=== PATIENT | female | born 1990 | race African-American/Black ===

== ENCOUNTER 2019-08-14 13:56 | Inpatient (IN) | payer MEDICAID ==
[2019-08-14] VITALS (7 sets, daily range): BP systolic 117–133; BP diastolic 62–77; Ht 167.6 cm; Wt 109.3 kg
[~2019-08-14] VITALS: Ht 167.6 cm; Wt 109.3 kg
[2019-08-14] MEDS ORDERED: PRENAVITE1 TAB PO (14:07)
[2019-08-14 14:35] LABS: BASOPHILS 0.1 % (0-2); EOSINOPHILS 0.4 % (0-7); HEMATOCRIT 34.3 % (36.0-48.0); HEMOGLOBIN 11.2 g/dL (12-16); IMMATURE GRANULOCYTES 0.6 % (0-5); LYMPHOCYTES 13.6 % (15-50); MCH 31.2 pg (26.0-34.0); MCHC 32.7 g/dL (31.0-37.0); MCV 95.5 fL (80.0-100.0); MEAN PLATELET VOLUME 9.7 fL (7.4-10.4); MONOCYTES 5.5 % (2-11); NEUTROPHILS 79.8 % (40-80); PLATELET COUNT 297 10x3/uL (130-400); RBC 3.59 10x6/uL (4.00-5.40); RDW 13.5 % (11.5-14.5); WBC 10.2 10x3/uL (4.8-10.8)
[2019-08-14 14:41] LABS: SPECIFIC GRAVITY 1.015 (1.005-1.020)
[2019-08-14 14:42] LABS: BILIRUBIN NEGATIVE (NEGATIVE); GLUCOSE NEGATIVE (NEGATIVE); KETONE NEGATIVE (NEGATIVE); NITRITE NEGATIVE (NEGATIVE); UROBILINOGEN NORMAL (NORMAL)
[2019-08-14 14:51] LABS: CALC OSMOLALITY 268 mosm/kg (275-300); CALCIUM 8.9 mg/dL (8.5-10.1); CARBON DIOXIDE 22.8 mmol/L (21.0-32.0); CHLORIDE - SERUM 102 mmol/L (98-107); CREATININE - SERUM 0.7 mg/dL (0.6-1.3); GLUCOSE 101 mg/dL (74-106); SODIUM 135 mmol/L (136-145); UREA NITROGEN 10 mg/dL (7-18); eGFR NON AFRICAN AMERICAN > 90 mL/min (90-120)
[2019-08-14 14:57] LABS: ALBUMIN 3.1 g/dL (3.4-5.0); ALKALINE PHOSPHATASE 234 U/L (30-120); ALT (SGPT) 31 U/L (10-68); BILIRUBIN - DIRECT 0.19 mg/dL (0.00-0.30); BILIRUBIN - INDIRECT 0.36 mg/dL (0.00-1.00); BILIRUBIN - TOTAL 0.55 mg/dL (0.2-1.3); PROTEIN - SERUM 6.9 g/dL (6.4-8.2); URIC ACID 3.3 mg/dL (2.6-7.2)
[2019-08-14 15:12] LABS: UDS - AMPHET NEGATIVE QUAL (NEGATIVE); UDS - BARB NEGATIVE QUAL (NEGATIVE); UDS - BENZO NEGATIVE QUAL (NEGATIVE); UDS - COCAINE NEGATIVE QUAL (NEGATIVE); UDS - OPIATE NEGATIVE QUAL (NEGATIVE); UDS - PCP NEGATIVE QUAL (NEGATIVE); UDS - THC NEGATIVE QUAL (NEGATIVE)
[2019-08-15 07:13] LABS: RAPID PLASMA REAGIN Non Reactive (Non Reactive)
[2019-08-15 07:28] VITALS: BP 116/62
[2019-08-15 08:51] LABS: BASOPHILS 0.1 % (0-2); EOSINOPHILS 0.3 % (0-7); IMMATURE GRANULOCYTES 0.3 % (0-5); LYMPHOCYTES 15.1 % (15-50); MCH 31.1 pg (26.0-34.0); MCHC 33.1 g/dL (31.0-37.0); MCV 94.1 fL (80.0-100.0); MEAN PLATELET VOLUME 9.1 fL (7.4-10.4); MONOCYTES 6.8 % (2-11); NEUTROPHILS 77.4 % (40-80); PLATELET COUNT 247 10x3/uL (130-400); RBC 2.89 10x6/uL (4.00-5.40); RDW 13.4 % (11.5-14.5); WBC 10.5 10x3/uL (4.8-10.8)
[2019-08-15 09:24] LABS: HEMATOCRIT 27.2 % (36.0-48.0)
[2019-08-15 13:39] VITALS: BP 131/71
[2019-08-15 17:27] VITALS: BP 118/60
[2019-08-16] MEDS ORDERED: PERCOCET 7.5/321 TAB PO (17:36)
[2019-08-16] MEDS ORDERED: IBUPROFEN600 MG PO (17:36)
--- NOTE | 2019-08-17 09:58 | MORECARE ---
CASE MANAGEMENT DISCHARGE SUMMARY PATIENT: REY BAILEY UNIT: [id number] ADM DATE: 08/14/19 AGE: 28 : 89 SEX: F ROOM/BED: D.1273 AUTHOR: KAYY GROSS PHYSICIAN: REFERRING PHYSICIAN: PREM PERDUE MD DATE OF SERVICE: 08/17/19 Discharge Plan Patient Name: REY BAILEY Facility: [facility]:[place] : 1990 Planned Disposition: Home Anticipated Discharge Date: 08/16/19 Discharge Date: 08/16/2019 Expected LOS: 2 Initial Reviewer: [id number] Initial Review Date: 08/14/2019 Generated: 08/17/19 10:58 am Patient Name: REY BAILEY Page [id number] at 0958 All edits/amendments must be made on the electronic document DICTATION DATE: 08/17/1958 THERAPEUTIC RECREATION LEADER: RICHARD 08/17/1958 RPT#: [id number] DC DATE:08/16/19 STATUS: DIS IN [facility] [address] [place] [address] END OF REPORT
== END 2019-08-16 18:30 | disposition home or self-care (01) | DRG 788 ==
LOC: D.LDO 13:56 → D.LD 14:40
PROVIDERS: ADMIT Obstetrics & Gynecology; ATTEND Obstetrics & Gynecology
PROC: 10D00Z1 Extraction of Products of Conception, Low, Open Approach (ICD-10-PCS; principal; 2019-08-14 17:55)
DX: O13.4 Gestational [pregnancy-induced] hypertension without significant proteinuria, complicating childbirth (principal); O99.824 Streptococcus B carrier state complicating childbirth; Z3A.39 39 weeks gestation of pregnancy; Z37.0 Single live birth; O36.8330 Maternal care for abnormalities of the fetal heart rate or rhythm, third trimester, not applicable or unspecified